=== PATIENT | female | born 1940 | race Caucasian/White ===

== ENCOUNTER 2023-03-26 10:39 | Emergency (ER) | payer OTHER, BC ==
[2023-03-26 11:52] LABS: Specific Gravity 1.015 (1.005-1.030); Urine Bacteria >50 /HPF (<20); Urine Bilirubin NEGATIVE (Negative); Urine Blood Negative (Negative); Urine Clarity Extremely Turbid (Clear); Urine Color Light-Yellow (Yellow); Urine Glucose NEGATIVE (Negative); Urine Mucus Slight /HPF (None Seen); Urine Protein TRACE (Negative); Urine RBC <5 /HPF (None Seen); Urine Urobilinogen Normal (Normal); Urine WBC Clump Moderate /HPF (None Seen); Urine pH 5.5 (5.0-7.0)
--- NOTE | 2023-03-26 12:09 | ER ---
Nurse's Notes [facility] Name: Dennis Lovell Age: 82 yrs Sex: Female : 1940 Arrival Date: 03/26/2023 Time: 10:39 Bed 4 Private MD: Diagnosis: Dysuria;UTI/ Urinary tract infection, site not specified;Dementia in other diseases classified elsewhere without behavioral disturbance Presentation: 03/26 10:53 Chief complaint: Caregiver states that patient was sent by Dr. Martinez for straight cath ss as she is unable to void in cup for UA. Caregiver reports that Dr. Martinez is requesting UA because she has had a rash to her groin that began approximately on Wednesday. Coronavirus screen: Client denies travel out of the [place] in the last 14 days. Ebola Screen: Patient denies exposure to infectious person. Patient denies travel to an Ebola-affected area in the 21 days before illness onset. Initial Sepsis Screen: Does the patient meet any 2 criteria? No. Patient's initial sepsis screen is negative. Does the patient have a suspected source of infection? No. Patient's initial sepsis screen is negative. Risk Assessment: Do you want to hurt yourself or someone else? Patient reports no desire to harm self or others. Onset of symptoms is unknown. 10:53 Method Of Arrival: Ambulatory ss 10:53 Acuity: SHAYNA 3 ss Historical: - Allergies: 10:55 No Known Allergies; ss - PMHx: 10:55 Alzheimer's disease; Arthritis; Atrial fibrillation; Dementia; Hyperlipidemia; ss Hypertensive disorder; - PSHx: 10:55 pacemaker; ss - Immunization history:: Adult Immunizations up to date. - Family history:: not pertinent. - Social history:: Smoking status: Patient denies any tobacco usage or history of. Screenin:34 [facility] ED Fall Risk Assessment (Adult) Score/Fall Risk Level 0 - 2 = Low Risk hb Oriented to surroundings, Maintained a safe environment. Abuse screen: Denies threats or abuse. Denies injuries from another. Nutritional screening: No deficits noted. Tuberculosis screening: No symptoms or risk factors identified. Assessment: 11:34 General: Appears in no apparent distress. Behavior is calm, cooperative. Pain: Denies hb pain. Neuro: Level of Consciousness is awake, alert, obeys commands. Cardiovascular: Patient's skin is warm and dry. Respiratory: Respiratory effort is even, unlabored, Respiratory pattern is regular, symmetrical. GI: No signs and/or symptoms were reported involving the gastrointestinal system. : Reports urgency, urinary frequency. EENT: No signs and/or symptoms were reported regarding the EENT system. Derm: Skin is pink, warm \T\ dry. Musculoskeletal: No signs and/or symptoms reported regarding the musculoskeletal system. Vital Signs: 10:53 BP 164 / 43; Pulse 70; Resp 16; Temp 97.3(TE); Pulse Ox 94% on R/A; Weight 44.13 kg; ss Pain 0/10; 10:53 Pain Scale: Adult ss ED Course: 10:41 Patient arrived in ED. rg4 10:46 Fabio Momin MD is Attending Physician. reshma 10:48 Mariah Patiño, RN is Primary Nurse. ld1 10:55 Triage completed. ss 10:55 Arm band placed on right wrist. ss 11:34 Patient has correct armband on for positive identification. hb 11:34 No provider procedures requiring assistance completed. Patient did not have IV access hb during this emergency room visit. 11:35 Urinalysis w/ reflexes Sent. ld1 Administered Medications: 12:20 Drug: Rocephin (cefTRIAXone) IM 1 grams Route: IM; Site: right deltoid; hb 12:20 Drug: Ciprofloxacin PO 500 mg Route: PO; hb Medication: 11:34 VIS not applicable for this client. hb Outcome: 12:09 Discharge ordered by . [facility] 12:29 Discharged to home ambulatory, with family. hb 12:29 Condition: stable 12:29 Discharge instructions given to patient, family, Instructed on discharge instructions, follow up and referral plans. medication usage, Demonstrated understanding of instructions, follow-up care, medications, Prescriptions given X 1. 12:29 Patient left the ED. hb Signatures: Fabio Momin MD MD cha Blanchard, Shelby, RN RN ss Baxter, Heather, RN RN hb Garcia, Rubi rg4 Mariah Patiño RN RN ld1
--- NOTE | 2023-03-26 12:09 | EDPHYS ---
Physician Documentation [facility] Name: Dennis Lovell Age: 82 yrs Sex: Female : 1940 Arrival Date: 03/26/2023 Time: 10:39 Bed 4 Private MD: ED Physician Fabio Momin HPI: 03/26 11:12 This 82 yrs old Female presents to ER via Ambulatory with complaints of reshma Urinary Problem. 11:12 The patient presents with urinary symptoms, dysuria, frequency. Onset: The reshma symptoms/episode began/occurred 2 day(s) ago. Modifying factors: The symptoms are alleviated by nothing, the symptoms are aggravated by nothing. Associated signs and symptoms: The patient has no apparent associated signs or symptoms. Severity of symptoms: At their worst the symptoms were mild, in the emergency department the symptoms are unchanged. The patient is not sexually active. The patient has not experienced similar symptoms in the past. Historical: - Allergies: 10:55 No Known Allergies; ss - PMHx: 10:55 Alzheimer's disease; Arthritis; Atrial fibrillation; Dementia; Hyperlipidemia; ss Hypertensive disorder; - PSHx: 10:55 pacemaker; ss - Immunization history:: Adult Immunizations up to date. - Family history:: not pertinent. - Social history:: Smoking status: Patient denies any tobacco usage or history of. ROS: 11:12 Constitutional: Negative for fever, chills, and weight loss, Eyes: Negative for injury, reshma pain, redness, and discharge, ENT: Negative for injury, pain, and discharge, Neck: Negative for injury, pain, and swelling, Cardiovascular: Negative for chest pain, palpitations, and edema, Respiratory: Negative for shortness of breath, cough, wheezing, and pleuritic chest pain, Abdomen/GI: Negative for abdominal pain, nausea, vomiting, diarrhea, and constipation, Back: Negative for injury and pain, MS/Extremity: Negative for injury and deformity, Skin: Negative for injury, rash, and discoloration, Neuro: Negative for headache, weakness, numbness, tingling, and seizure, Psych: Negative for depression, anxiety, suicide ideation, homicidal ideation, and hallucinations, Allergy/Immunology: Negative for hives, rash, and allergies, Endocrine: Negative for neck swelling, polydipsia, polyuria, polyphagia, and marked weight changes, Hematologic/Lymphatic: Negative for swollen nodes, abnormal bleeding, and unusual bruising. 11:12 : Positive for urinary symptoms, urinary frequency. Exam: 11:12 Constitutional: This is a well developed, well nourished patient who is awake, alert, reshma and in no acute distress. Head/Face: Normocephalic, atraumatic. Eyes: Pupils equal round and reactive to light, extra-ocular motions intact. Lids and lashes normal. Conjunctiva and sclera are non-icteric and not injected. Cornea within normal limits. Periorbital areas with no swelling, redness, or edema. ENT: Nares patent. No nasal discharge, no septal abnormalities noted. Tympanic membranes are normal and external auditory canals are clear. Oropharynx with no redness, swelling, or masses, exudates, or evidence of obstruction, uvula midline. Mucous membranes moist. Neck: Trachea midline, no thyromegaly or masses palpated, and no cervical lymphadenopathy. Supple, full range of motion without nuchal rigidity, or vertebral point tenderness. No Meningismus. Chest/axilla: Normal chest wall appearance and motion. Nontender with no deformity. No lesions are appreciated. Cardiovascular: Regular rate and rhythm with a normal S1 and S2. No gallops, murmurs, or rubs. Normal PMI, no JVD. No pulse deficits. Respiratory: Lungs have equal breath sounds bilaterally, clear to auscultation and percussion. No rales, rhonchi or wheezes noted. No increased work of breathing, no retractions or nasal flaring. Abdomen/GI: Soft, non-tender, with normal bowel sounds. No distension or tympany. No guarding or rebound. No evidence of tenderness throughout. Back: No spinal tenderness. No costovertebral tenderness. Full range of motion. Skin: Warm, dry with normal turgor. Normal color with no rashes, no lesions, and no evidence of cellulitis. MS/ Extremity: Pulses equal, no cyanosis. Neurovascular intact. Full, normal range of motion. Neuro: Awake and alert, GCS 15, oriented to person, place, time, and situation. Cranial nerves II-XII grossly intact. Motor strength 5/5 in all extremities. Sensory grossly intact. Cerebellar exam normal. Normal gait. Psych: Awake, alert, with orientation to person, place and time. Behavior, mood, and affect are within normal limits. Vital Signs: 10:53 BP 164 / 43; Pulse 70; Resp 16; Temp 97.3(TE); Pulse Ox 94% on R/A; Weight 44.13 kg; ss Pain 0/10; 10:53 Pain Scale: Adult ss MDM: 10:46 Patient medically screened. reshma 11:16 Differential diagnosis: urinary tract infection. Data reviewed: vital signs, nurses reshma notes, lab test result(s), urinalysis. Consideration of Admission/Observation Escalation of care including admission/observation considered. I considered the following discharge prescriptions or medication management in the emergency department Medications were administered in the Emergency Department. See MAR. Test considered but Not performed: Labs: NO LABS, NO CT. Care significantly affected by the following chronic conditions: ALHEIMERS, OA, A FIB, DEMENTIA, HYPERLIPEMIA. 03/26 11:11 Order name: Urinalysis w/ reflexes; Complete Time: 11:59 [facility] 03/26 11:55 Order name: Urine Culture EDMS Administered Medications: 12:20 Drug: Rocephin (cefTRIAXone) IM 1 grams Route: IM; Site: right deltoid; hb 12:20 Drug: Ciprofloxacin PO 500 mg Route: PO; hb Disposition Summary: 03/26/23 12:09 Discharge Ordered Location: Home reshma Problem: new reshma Symptoms: have improved reshma Condition: Stable reshma Diagnosis - Dysuria reshma - UTI/ Urinary tract infection, site not specified reshma - Dementia in other diseases classified elsewhere without behavioral disturbance reshma Followup: reshma - With: Private Physician - When: 2 - 3 days - Reason: Recheck today's complaints, Continuance of care, Re-evaluation by your physician Discharge Instructions: - Discharge Summary Sheet reshma - Dementia reshma - Dysuria reshma - Urinary Tract Infection, Adult reshma - Urinary Tract Infection, Adult, [id number] Forms: - Medication Reconciliation Form reshma - Thank You Letter reshma - Antibiotic Education reshma - Prescription Opioid Use [facility] - [email or web address] [facility] Prescriptions: - Cipro 250 mg Oral Tablet - take 1 tablet by ORAL route every 12 hours; 14 tablet; Refills: 0, Product reshma Selection Permitted Signatures: Dispatcher [employer] EDMS Fabio Momin MD MD cha Blanchard, Shelby, RN RN Mariela Forbes RN RN hb
[2023-03-26] MEDS ORDERED: LIDOCAINE 1% MPF 2 ML AMPULE ONE (12:22)
[2023-03-26] MEDS ORDERED: CIPROFLOXACIN HCL 500 MG TAB ONE (12:22)
[2023-03-26] MEDS ORDERED: CEFTRIAXONE 1000 MG/VIAL ONE (12:22)
[2023-03-26 12:34] VITALS: BP 164/43; TEMP 97.3; O2SAT 94
== END 2023-03-26 12:29 | disposition home or self-care (01) ==
LOC: ER 10:39
DX: N39.0 Urinary tract infection, site not specified (principal); G30.9 Alzheimer's disease, unspecified; F02.80 Dementia in other diseases classified elsewhere, unspecified severity, without behavioral disturbance, psychotic disturbance, mood disturbance, and anxiety; I10 Essential (primary) hypertension; Z95.0 Presence of cardiac pacemaker
CPT/HCPCS: 87088; 81001; 87086; 96372; 99284; J0696

== ENCOUNTER 2023-04-21 10:51 | Inpatient (IN) | payer OTHER, BC ==
[2023-04-21] MEDS ORDERED: CEFTRIAXONE 1000 MG/VIAL ONE (11:37)
[2023-04-21] MEDS ORDERED: LEVALBUTEROL 1.25 MG/3 ML NEB ONE (11:38)
[2023-04-21] MEDS ORDERED: NA CHLORIDE 0.9% 1,000 ML ONE (11:38)
[2023-04-21] MEDS ORDERED: IPRATROPIUM BROM 0.5MG/2.5ML ONE (11:38)
[2023-04-21] MEDS ORDERED: NA CHLORIDE 0.9% 100 ML ONE (11:39)
[2023-04-21 12:10] LABS: Protime INR 1.06
[2023-04-21 12:11] LABS: Hematocrit 39.9 % (36.0-45.0); Lymphocytes % 29.6 % (15.3-44.8); MCV 89.5 fL (80-100); MPV 7.5 fL (7.6-11.3); RBC Red Blood Cell Count 4.46 M/uL (3.86-4.86)
[2023-04-21 12:23] LABS: Albumin 3.7 g/dL (3.4-5.0); Bilirubin Direct 0.1 mg/dL (0-0.2); Bilirubin Indirect, Calculated 0.4 mg/dL (0.2-0.8); Bilirubin Total 0.5 mg/dL (0.2-1.0); Magnesium 2.6 mg/dL (1.6-2.4); Potassium 3.7 mEq/L (3.5-5.1); Protein, Total 7.8 g/dL (6.4-8.2); Troponin High Sensitivity 10.1 pg/mL (<58.9)
--- NOTE | 2023-04-21 12:32 | RAD REPORT ---
EXAM DESCRIPTION: RAD - Chest Single View - 04/21/2023 12:06 pm CLINICAL HISTORY: Cough;Dyspnea Chest pain. COMPARISON: Chest Single View dated 01/16/2023 FINDINGS: Portable technique limits examination quality. Mild interstitial pulmonary edema. The heart is mildly enlarged in size. No displaced fractures. IMPRESSION: Mild CHF.
[2023-04-21] MEDS ORDERED: OSELTAMIVIR 75 MG CAP PO ONE (12:55)
[2023-04-21] MEDS ORDERED: AZITHROMYCIN 500 MG INJ IVPB ONE (12:56)
--- NOTE | 2023-04-21 13:18 | EDPHYS ---
Physician Documentation [facility] Name: Dennis Lovell Age: 82 yrs Sex: Female : 1940 Arrival Date: 04/21/2023 Time: 10:51 Bed 8 Private MD: ED Physician Fabio Momin HPI: 04/21 13:03 This 82 yrs old Female presents to ER via EMS with complaints of Shortness Of reshma Breath. 13:03 The patient has shortness of breath at rest, with light activity. Onset: The reshma symptoms/episode began/occurred 3 day(s) ago. Duration: The symptoms are continuous, and are steadily getting worse. The patient's shortness of breath is aggravated by coughing, light activity, talking, walking, is alleviated by rest, sitting up, application of supplemental oxygen. Associated signs and symptoms: Pertinent positives: non-productive cough, fever. Severity of symptoms: At their worst the symptoms were moderate in the emergency department the symptoms have improved mildly. The patient has experienced similar episodes in the past, a few times. Historical: - PMHx: 12:00 Alzheimer's disease; Arthritis; Atrial fibrillation; Dementia; Hyperlipidemia; db Hypertensive disorder; - PSHx: 12:00 pacemaker; db - Immunization history:: Adult Immunizations up to date. - Social history:: Smoking status: Patient denies any tobacco usage or history of. ROS: 13:04 Constitutional: Negative for fever, chills, and weight loss, Eyes: Negative for injury, reshma pain, redness, and discharge, ENT: Negative for injury, pain, and discharge, Neck: Negative for injury, pain, and swelling, Cardiovascular: Negative for chest pain, palpitations, and edema. Exam: 13:11 Constitutional: This is a well developed, well nourished patient who is awake, alert, reshma and in no acute distress. Head/Face: Normocephalic, atraumatic. Eyes: Pupils equal round and reactive to light, extra-ocular motions intact. Lids and lashes normal. Conjunctiva and sclera are non-icteric and not injected. Cornea within normal limits. Periorbital areas with no swelling, redness, or edema. ENT: Nares patent. No nasal discharge, no septal abnormalities noted. Tympanic membranes are normal and external auditory canals are clear. Oropharynx with no redness, swelling, or masses, exudates, or evidence of obstruction, uvula midline. Mucous membranes moist. Neck: Trachea midline, no thyromegaly or masses palpated, and no cervical lymphadenopathy. Supple, full range of motion without nuchal rigidity, or vertebral point tenderness. No Meningismus. Chest/axilla: Normal chest wall appearance and motion. Nontender with no deformity. No lesions are appreciated. Abdomen/GI: Soft, non-tender, with normal bowel sounds. No distension or tympany. No guarding or rebound. No evidence of tenderness throughout. Back: No spinal tenderness. No costovertebral tenderness. Full range of motion. Female : Normal external genitalia. Skin: Warm, dry with normal turgor. Normal color with no rashes, no lesions, and no evidence of cellulitis. MS/ Extremity: Pulses equal, no cyanosis. Neurovascular intact. Full, normal range of motion. Psych: Awake, alert, with orientation to person, place and time. Behavior, mood, and affect are within normal limits. 13:11 Cardiovascular: Rate: tachycardic, actual rate is 101 bpm, Rhythm: regular, Pulses: Pulses are 4+ in bilateral radial, brachial, femoral, popliteal, posterior tibial and and dorsalis pedis arteries.. Heart sounds: normal, Edema: is not appreciated, JVD: is not appreciated. 13:11 ECG was reviewed by the Attending Physician. Vital Signs: 10:58 BP 158 / 45; Pulse 67; Resp 18; Temp 98.7(O); Pulse Ox 100% ; Weight 54.43 kg; Height 5 db ft. 5 in. ; 12:00 BP 151 / 49; Pulse 89; Resp 16; Pulse Ox 99% on R/A; db 13:07 BP 138 / 47; Pulse 88; Resp 18; Pulse Ox 94% on R/A; ko1 13:42 BP 113 / 48; Pulse 89; Resp 18; Pulse Ox 95% on 2 lpm NC; ko1 14:49 BP 130 / 54; Pulse 95; Resp 16; Pulse Ox 95% ; ko1 10:58 Body Mass Index 19.97 (54.43 kg, 165.1 cm) db MDM: 11:02 Patient medically screened. reshma 13:12 Differential diagnosis: Anemia Anxiety Reaction Bronchitis CHF exacerbation, Chronic reshma Obstructive Pulmonary Disease obstructed airway, tracheal injury, bronchitis, flu, URI, viral Infection, bacterial infection, URI, bronchitis, pneumonia UTI, Myocardial Infarction pneumonia, pulmonary edema, Pulmonary Embolism reactive airway disease, Sepsis. Antibiotic administration: Not indicated. Differential Diagnosis altered mental status, sepsis. Immunization status: Pneumococcal vaccine: within last 5 years. Influenza vaccine: within last 5 years. Data reviewed: vital signs, nurses notes, lab test result(s), EKG, radiologic studies, CT scan, plain films. Consideration of Admission/Observation Patient was admitted/placed on observation. Escalation of care including admission/observation considered. I considered the following discharge prescriptions or medication management in the emergency department Medications were administered in the Emergency Department. See MAR. Test considered but Not performed: CT: no ct chest. Care significantly affected by the following chronic conditions: Hypertension, a fib, oa, hyperlipid, alzheimers. Counseling: I had a detailed discussion with the patient and/or guardian regarding: the historical points, exam findings, and any diagnostic results supporting the discharge/admit diagnosis, lab results, radiology results, the need for further work-up and treatment in the hospital. 04/21 11:13 Order name: Basic Metabolic Panel; Complete Time: 12:36 [facility] 04/21 11:13 Order name: CBC with Diff; Complete Time: 12:36 [facility] 04/21 11:13 Order name: LFT's; Complete Time: 12:36 [facility] 04/21 11:13 Order name: Magnesium; Complete Time: 12:36 [facility] 04/21 11:13 Order name: NT PRO-BNP; Complete Time: 12:36 [facility] 04/21 11:13 Order name: PT-INR; Complete Time: 12:36 [facility] 04/21 11:13 Order name: Troponin HS; Complete Time: 12:36 [facility] 04/21 11:13 Order name: Blood Culture Adult (2) [facility] 04/21 11:13 Order name: Lactate w/ 2H reflex if indic.; Complete Time: 12:36 [facility] 04/21 11:13 Order name: Urinalysis w/ reflexes [facility] 04/21 11:13 Order name: Flu; Complete Time: 12:36 [facility] 04/21 11:13 Order name: COVID-19 SARS RT PCR; Complete Time: 12:36 [facility] 04/21 15:37 Order name: Lactate Sepsis 2 HR Follow-up [facility] 04/21 11:13 Order name: XRAY Chest (1 view); Complete Time: 12:36 [facility] 04/21 15:13 Order name: Thorax Wo Con [facility] 04/21 15:17 Order name: ERT ORTHOSTATIC V/S [facility] 04/21 15:18 Order name: ERT ORTHOSTATIC V/S [facility] 04/21 15:18 Order name: ERT ORTHOSTATIC V/S [facility] 04/21 15:18 Order name: ERT ORTHOSTATIC V/S [facility] 04/21 15:18 Order name: ERT ORTHOSTATIC V/S [facility] 04/21 15:54 Order name: CT [facility] 04/21 11:13 Order name: EKG; Complete Time: 11:14 [facility] 04/21 15:19 Order name: Physical Therapy Consult [facility] 04/21 11:13 Order name: Cardiac monitoring; Complete Time: 11:33 [facility] 04/21 11:13 Order name: EKG - Nurse/Tech; Complete Time: 13:53 [facility] 04/21 11:13 Order name: IV Saline Lock; Complete Time: 11:33 [facility] 04/21 11:13 Order name: Labs collected and sent; Complete Time: 11:52 [facility] 04/21 11:13 Order name: O2 Per Protocol; Complete Time: 11:33 [facility] 04/21 11:13 Order name: O2 Sat Monitoring; Complete Time: 11:33 [facility] EC:11 Rate is 77 beats/min. Rhythm is regular. QRS [place] is Normal. MA interval is normal. QRS reshma interval is normal. QT interval is normal. No Q waves. T waves are Normal. No ST changes noted. Clinical impression: NSR w/ Non-specific ST/T Changes, 1st degree heart block, and No evidence of ischemia. Interpreted by me. Reviewed by me. Administered Medications: 11:31 Not Given (given by EMS): MethylPrednisoLONE IVP 125 mg IVP once db 11:48 Drug: Levalbuterol Inhalation 2.5 mg Route: Inhalation; ko1 11:48 Drug: Ipratropium Inhalation Aerosol 0.5 mg Route: Inhalation; ko1 11:51 Drug: NS 0.9% IV 1000 ml Route: IV; Rate: 125 ml/hr; Site: right antecubital; ko1 12:30 Drug: Rocephin IV 1 grams Route: IV; Rate: per protocol; Site: right antecubital; ko1 12:57 Drug: Zithromax IVPB 500 mg Route: IVPB; Infused Over: 1 hrs; Site: right antecubital; ko1 12:57 Drug: Oseltamivir PO 75 mg Route: PO; ko1 13:53 Follow up: Response: No adverse reaction db Disposition Summary: 04/21/23 13:17 Hospitalization Ordered Hospitalization Status: Inpatient Admission reshma Location: Telemetry/MedSurg (Inpatient) reshma Condition: Fair reshma Problem: new reshma Symptoms: have improved reshma Bed/Room Type: Standard reshma Provider: Mark Boswell(04/21/23 13:48) reshma Room Assignment: [id number](04/21/23 15:27) bd Diagnosis - Dementia in other diseases classified elsewhere without behavioral disturbance reshma - Influenza due to other identified influenza virus with pneumonia - INFLUENZA B reshma - Hypoxemia reshma - Acute kidney failure, unspecified - ACUTE ON CHRONIC reshma Forms: - Medication Reconciliation Form reshma - SBAR form reshma Signatures: Dispatcher [employer] EDMS Aleta Tompkins Corey, MD MD cha Oliver, Kathy, RN RN ko1 Asha Harkins RN RN db Corrections: (The following items were deleted from the chart) 13:48 13:17 Verena Gamez cha reshma 15:27 13:17 reshma bd
--- NOTE | 2023-04-21 13:18 | ER ---
Nurse's Notes [facility] Name: Dennis Lovell Age: 82 yrs Sex: Female : 1940 Arrival Date: 04/21/2023 Time: 10:51 Bed 8 Private MD: Diagnosis: Dementia in other diseases classified elsewhere without behavioral disturbance;Influenza due to other identified influenza virus with pneumonia-INFLUENZA B;Hypoxemia;Acute kidney failure, unspecified-ACUTE ON CHRONIC Presentation: 04/21 10:58 Chief complaint: EMS states: picked up from Urgent care for Low SpO2 Care RA 84%, BP db 70/40, Bilat eye redness in eyes for unknown days. Patient placed on 2L O2 at Urgent Care and O2 94%. Rales bilat. EMS gave 125 mg Solumedrol. Duoneb x1 given by EMS and still going upon arrival. Atrovent/Albuterol. Glucose 164. Coronavirus screen: Vaccine status: Patient reports receiving the 2nd dose of the covid vaccine. Client denies travel out of the [place] in the last 14 days. At this time, the client does not indicate any symptoms associated with coronavirus-19. Ebola Screen: Patient negative for fever greater than or equal to 101.5 degrees Fahrenheit, and additional compatible Ebola Virus Disease symptoms Patient denies exposure to infectious person. Patient denies travel to an Ebola-affected area in the 21 days before illness onset. No symptoms or risks identified at this time. Initial Sepsis Screen: Does the patient meet any 2 criteria? No. Patient's initial sepsis screen is negative. Does the patient have a suspected source of infection? No. Patient's initial sepsis screen is negative. Risk Assessment: Do you want to hurt yourself or someone else? Patient reports no desire to harm self or others. Onset of symptoms was April 21, 2023. Care prior to arrival: Medication(s) given: Albuterol Neb x 1, solumedrol IV initiated. 10:58 Method Of Arrival: EMS: [facility] db 10:58 Acuity: SHAYNA 2 db Triage Assessment: 11:14 General: Appears in no apparent distress. comfortable, Behavior is calm, cooperative. db Pain: Denies pain. Neuro: Level of Consciousness is awake, alert, obeys commands, Oriented to person, place, time, situation. Respiratory: Airway is patent Respiratory effort is even, unlabored, Respiratory pattern is regular, symmetrical, Breath sounds are coarse. Historical: - PMHx: 12:00 Alzheimer's disease; Arthritis; Atrial fibrillation; Dementia; Hyperlipidemia; db Hypertensive disorder; - PSHx: 12:00 pacemaker; db - Immunization history:: Adult Immunizations up to date. - Social history:: Smoking status: Patient denies any tobacco usage or history of. Screenin:18 [facility] ED Fall Risk Assessment (Adult) History of falling in the last 3 months, db including since admission No falls in past 3 months (0 pts) Confusion or Disorientation Yes (5 pts) Intoxicated or Sedated No (0 pts) Impaired Gait No (0 pts) Mobility Assist Device Used Yes (1 pt) Altered Elimination No (0 pt) Score/Fall Risk Level 0 - 2 = Low Risk Oriented to surroundings, Maintained a safe environment. Abuse screen: Denies threats or abuse. Denies injuries from another. Nutritional screening: No deficits noted. Nutritional screening: No deficits noted. Tuberculosis screening: No symptoms or risk factors identified. Assessment: 11:45 Reassessment: SEE TRIAGE FOR INITIAL ASSESSMENT. db 11:52 Reassessment: CALLED LAB FOR PATIENT 2ND BLOOD CULTURE. 1ST BLOOD CULTURE DIFFICULT TO db OBTAIN. IV ANTIBIOTICS HELD TILL BLOOD CULTURE DRAW COMPLETED. 12:17 Reassessment: Patient appears in no apparent distress at this time. Patient and/or db family updated on plan of care and expected duration. Pain level reassessed. Patient is alert, oriented x 3, equal unlabored respirations, skin warm/dry/pink. 12:17 Reassessment: PHLEBOTOMY AT BEDSIDE FOR BLOOD DRAW. db 12:18 Neuro: Level of Consciousness is awake, alert, obeys commands, confused, Oriented to. db 15:25 Reassessment:. db 15:26 Reassessment: LACTATE 2.7. db Vital Signs: 10:58 BP 158 / 45; Pulse 67; Resp 18; Temp 98.7(O); Pulse Ox 100% ; Weight 54.43 kg; Height 5 db ft. 5 in. ; 12:00 BP 151 / 49; Pulse 89; Resp 16; Pulse Ox 99% on R/A; db 13:07 BP 138 / 47; Pulse 88; Resp 18; Pulse Ox 94% on R/A; ko1 13:42 BP 113 / 48; Pulse 89; Resp 18; Pulse Ox 95% on 2 lpm NC; ko1 14:49 BP 130 / 54; Pulse 95; Resp 16; Pulse Ox 95% ; ko1 10:58 Body Mass Index 19.97 (54.43 kg, 165.1 cm) db ED Course: 11:01 Patient arrived in ED. ko1 11:02 Fabio Momin MD is Attending Physician. reshma 11:08 Asha Harkins, RN is Primary Nurse. db 11:14 Triage completed. db 11:14 Arm band placed on Patient placed in an exam room. db 11:30 Patient has correct armband on for positive identification. Fall risk band placed. ko1 Placed in gown. Bed in low position. Call light in reach. Side rails up X2. Provided Education on: NA. Client placed on continuous cardiac and pulse oximetry monitoring. NIBP monitoring applied. equipment monitor phototypesetting on. Door closed. Noise minimized. Lights dimmed. Warm blanket given. 11:30 Inserted saline lock: 22 gauge in right antecubital area, using aseptic technique. ko1 Blood collected. 11:33 COVID-19 SARS RT PCR Sent. ko1 11:33 Flu Sent. ko1 11:45 Maintain EMS IV. Dressing intact. Good blood return noted. Site clean \T\ dry. Gauge \T\ db site: 22 G LAC. 11:49 Lactate w/ 2H reflex if indic. Sent. ko1 11:49 Basic Metabolic Panel Sent. ko1 11:49 CBC with Diff Sent. ko1 11:49 LFT's Sent. ko1 11:49 Magnesium Sent. ko1 11:49 NT PRO-BNP Sent. ko1 11:49 PT-INR Sent. ko1 11:49 Troponin HS Sent. ko1 11:50 First set of blood cultures drawn. db 12:07 XRAY Chest (1 view) In Process Unspecified. EDMS 12:21 Notified ED physician of a critical lab result(s). lactate 2.4. ll1 12:30 Blood Culture Adult (2) Sent. ko1 13:16 Verena Gamez MD is Hospitalizing Provider. reshma 13:48 Mark Boswell is Hospitalizing Provider. reshma 14:49 No provider procedures requiring assistance completed. Patient admitted, IV remains in ko1 place. Administered Medications: 11:31 Not Given (given by EMS): MethylPrednisoLONE IVP 125 mg IVP once db 11:48 Drug: Levalbuterol Inhalation 2.5 mg Route: Inhalation; ko1 11:48 Drug: Ipratropium Inhalation Aerosol 0.5 mg Route: Inhalation; ko1 11:51 Drug: NS 0.9% IV 1000 ml Route: IV; Rate: 125 ml/hr; Site: right antecubital; ko1 12:30 Drug: Rocephin IV 1 grams Route: IV; Rate: per protocol; Site: right antecubital; ko1 12:57 Drug: Zithromax IVPB 500 mg Route: IVPB; Infused Over: 1 hrs; Site: right antecubital; ko1 12:57 Drug: Oseltamivir PO 75 mg Route: PO; ko1 13:53 Follow up: Response: No adverse reaction db Medication: 14:49 VIS not applicable for this client. ko1 Outcome: 13:17 Decision to Hospitalize by Provider. reshma 16:21 Admitted to Med/surg accompanied by tech, family with patient, via stretcher, room 218, ko1 with chart, Report called to BEAR Patel 16:21 Condition: stable 16:21 Instructed on the need for admit. 16:51 Patient left the ED. ko1 Signatures: Dispatcher [employer] EDFabio Higgins MD MD cha Lewis, Lynsay, RN RN ll1 Juju Gupta RN RN ko1 Asha Harkins RN RN db
[2023-04-21] MEDS ORDERED: TRAMADOL HCL 50 MG TAB PO PRN (15:13)
[2023-04-21] MEDS ORDERED: ACETAMINOPHEN 325 MG TABLET PO PRN (15:14)
[2023-04-21] MEDS ORDERED: ONDANSETRON 4 MG/2 ML VIAL IV PRN (15:31)
--- NOTE | 2023-04-21 15:34 | P.HP ---
Certification for Inpatient Patient admitted to: Inpatient With expected LOS: >2 Midnights Patient will require the following post-hospital care: None Practitioner: I am a practitioner with admitting privileges, knowledge of patient current condition, hospital course, and medical plan of care. Services: Services provided to patient in accordance with Admission requirements found in Title 42 Section 412.3 of the Code of Federal Regulations Patient History Date of Service: 04/21/23 Reason for admission: SOB History of Present Illness: Patient is an 82-year-old female with a past medical history significant for dementia, osteoarthritis, atrial fibrillation, hyperlipidemia, hypertension who presents with complaint of shortness of breath to be ongoing for the past 3 days. Patient currently confused and unable to provide any accurate history. Family reported associated signs and symptoms of cough, weakness, fatigue, nausea, vomiting and poor appetite. Family also reported that patient has been having episodes of generalized tremors before passing out. No other signs or symptoms reported. Symptoms are aggravated or relieved by nothing. Patient was brought to the hospital for medical evaluation. Allergies No Known Allergies Allergy (Unverified 04/21/23 15:50) Home Medications: Amlodipine [Norvasc] 5 mg PO BID 04/21/23 Aspirin [Aspirin EC 81 MG] 81 mg PO DAILY 04/21/23 Atorvastatin Calcium 20 mg PO DAILY 04/21/23 Donepezil [Aricept] 5 mg PO DAILY 04/21/23 Fluoxetine HCl 10 mg PO DAILY 04/21/23 Losartan Potassium [Cozaar] 50 mg PO BID 04/21/23 Quetiapine [Seroquel] 25 mg PO BID 04/21/23 Triamterene/Hydrochlorothiazid [Triamterene-Hctz 37.5-25 mg Tb] 37.5 mg PO DAILY 04/21/23 - Past Medical/Surgical History -: Afib -: HTN -: HLD -: OA -: Alzheimer's Dementia Past Surgical History: Reviewed- Non-Contributory - Family History Family History: Reviewed- Non-Contributory - Social History Smoking Status: Never smoker Caffeine use: Yes Place of Residence: Home Review of Systems is unable to be obtained (Unable to assess. Patient confused.) Physical Examination - Physical Exam General: Alert, In no apparent distress, Oriented x2, Confused HEENT: Atraumatic, PERRLA, Mucous membr. moist/pink, EOMI, Sclerae nonicteric Neck: Supple, 2+ carotid pulse no bruit, No LAD, Without JVD or thyroid abnormality Respiratory: Diminished Cardiovascular: No edema, Normal S1 S2, Irregular heart rate/rhythm Capillary refill: <2 Seconds Gastrointestinal: Normal bowel sounds, Soft and benign, No tenderness Musculoskeletal: No clubbing, No tenderness Integumentary: No rashes, No significant lesion Neurological: Normal speech, Normal tone, Normal affect Lymphatics: No axilla or inguinal lymphadenopathy - Studies Laboratory Data (last 24 hrs) 04/21/23 11:45: PT 11.7, INR 1.06 04/21/23 11:45: WBC 10.10, Hgb 13.2, Hct 39.9, Plt Count 364 04/21/23 11:45: Sodium 141, Potassium 3.7, BUN 25 H, Creatinine 1.81 H, Glucose 182 H, Magnesium 2.6 H, Total Bilirubin 0.5, AST 23, ALT 27, Alkaline Phosphatase 157 H Microbiology Data (last 24 hrs): 04/21/23 11:30 Nasopharnyx Influenza Type A Antigen Screen - Final 04/21/23 11:30 Nasopharnyx Influenza Type B Antigen Screen - Final Assessment and Plan - Plan --Dyspnea. CT chest indicates no evidence of pneumonia but indicates moderate COPD. Continue nebulizer treatment with Atrovent and albuterol. Continue O2 therapy. --Syncope versus seizures. Patient has had episodes of generalized tremors before passing out. CT head unremarkable for any acute intracranial abnormality. Neurology consulted. Fall precautions. We will await further recommendations. --Influenza B. Continue Tamiflu. Contact and droplet precautions. --Hyperlipidemia. Continue statin. --Hypertension. Poorly controlled. Continue home medications and hydralazine as needed. -- Alzheimer's dementia. Continue home medications. --Depression. Continue home medications -- Paroxysmal Atrial fibrillation. Patient not on home anticoagulation. Telemetry to monitor for any malignant arrhythmia. -- Osteoarthritis. We will manage pain with current pain medication -- Aortic root and ascending aorta aneurysm. CT imaging indicates " aneurysmal dilation of the aortic root and ascending aorta is noted, measuring maximally 6 cm". Cardiology consulted. We will keep blood pressure controlled. Continue aspirin. --IZABELLA. Likely prerenal. Secondary to poor p.o. intake. Continue IV hydration. We will continue to monitor renal functions. --Nausea and vomiting. Antiemetics on board. Continue supportive care. --DVT prophylaxis with Lovenox subQ. Discharge Plan: Home Plan to discharge in: Greater than 2 days - Advance Directives Does patient have a Living Will: No Does patient have a Durable POA for Healthcare: No - Code Status/Comfort Care Code Status Assessed: Yes Physician Review: Patient Assessed, Agree with Above Assessment and Plan Critical Care: No
--- NOTE | 2023-04-21 15:54 | RAD REPORT ---
EXAM DESCRIPTION: CT - Head Brain Wo Cont - 04/21/2023 3:44 pm CLINICAL HISTORY: Syncope and Suspected seizures Headache, drowsiness COMPARISON: Head Brain Wo Cont dated 01/16/2023; Thorax Wo Con dated 04/21/2023 TECHNIQUE: All CT scans are performed using dose optimization technique as appropriate and may inclu de automated exposure control or mA/KV adjustment according to patient size. FINDINGS: No intracranial hemorrhage, hydrocephalus or extra-axial fluid collection.Moderate periven tricular chronic microvascular ischemic changes. 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 No areas of brain edema or evidence of midline shift. The paranasal sinuses and mastoids are clear. The calvarium is intact. IMPRESSION: No acute intracranial abnormality.
--- NOTE | 2023-04-21 15:56 | RAD REPORT ---
EXAM DESCRIPTION: CT - Thorax Wo Con CLINICAL HISTORY: Chest pain R O Pneumonia COMPARISON: Head Brain Wo Cont dated 04/21/2023 FINDINGS: Aneurysmal dilatation of the aortic root and ascending aorta is noted, measuring maximally 6 cm. Mild atherosclerosis of the aortic arch is present. Mild linear atelectasis in both posterior lung bases. No focal infiltrate. Moderate emphysema. No axillary, mediastinal or hilar adenopathy. No concerning bony finding. No gross upper abdominal finding. All CT scans are performed using dose optimization technique as appropriate and may include automated exposure control or mA/KV adjustment according to patient size. IMPRESSION: Aneurysmal dilatation of the thoracic aorta measuring up to 6 cm. No evidence of pneumonia. Moderate COPD.
[2023-04-21 17:16] VITALS: BMI 19.8
[2023-04-21] MEDS: ENOXAPARIN 30 MG/0.3 ML SQ SCH (17:24)
[2023-04-21 18:23] LABS: Magnesium 2.4 mg/dL (1.6-2.4); Phosphorus 2.4 mg/dL (2.5-4.9); Thyroid Stimulating Hormone 0.889 uIU/mL (0.358-3.740)
[2023-04-21 20:40] LABS: Specific Gravity 1.017 (1.005-1.030); Urine Bacteria None Seen /HPF (<20); Urine Bilirubin NEGATIVE (Negative); Urine Blood Negative (Negative); Urine Clarity Extremely Turbid (Clear); Urine Color Yellow (Yellow); Urine Crystals Unidentified Few /HPF (None Seen); Urine Glucose NEGATIVE (Negative); Urine Mucus Slight /HPF (None Seen); Urine Protein 1+ (Negative); Urine RBC <5 /HPF (None Seen); Urine Urobilinogen Normal (Normal); Urine pH 5.5 (5.0-7.0)
[2023-04-21] MEDS ORDERED: POTASSIUM CL SA 10 MEQ TAB PO ONE (21:00)
[2023-04-21] MEDS: OSELTAMIVIR 75 MG CAP PO SCH (21:34)
[2023-04-22 03:16] LABS: Absolute Lymphocytes (CBC) 1.1 K/uL (0.7-4.9); Hematocrit 36.1 % (36.0-45.0); Lymphocytes % 8.7 % (15.3-44.8); MCV 88.8 fL (80-100); MPV 8.2 fL (7.6-11.3); RBC Red Blood Cell Count 4.07 M/uL (3.86-4.86)
[2023-04-22 03:47] LABS: Potassium 4.7 mEq/L (3.5-5.1)
[2023-04-22 04:41] LABS: Phosphorus 2.6 mg/dL (2.5-4.9)
[2023-04-22 04:45] LABS: Blood Morphology Comment NOTED (NOT SEEN); Platelet Estimate ADEQ; Polychromasia 1+
[2023-04-22] MEDS ORDERED: HYDRALAZINE HCL 20 MG/ML VIAL IV PRN (05:37)
[2023-04-22] MEDS: IPRATROPIUM BROM 0.5MG/2.5ML NEB SCH ×3 (08:05→19:40)
[2023-04-22] MEDS: ALBUTEROL 2.5 MG/3 ML NEB SOL NEB SCH ×3 (08:05→19:40)
[2023-04-22] MEDS ORDERED: ASPIRIN 81 MG CHEWABLE TABLET PO SCH (09:00)
[2023-04-22] MEDS ORDERED: ENOXAPARIN 40 MG/0.4 ML SQ SCH (09:00)
[2023-04-22] MEDS: OSELTAMIVIR 75 MG CAP PO SCH ×2 (10:20→21:30)
[2023-04-22] MEDS: ENOXAPARIN 30 MG/0.3 ML SQ SCH (13:00)
--- NOTE | 2023-04-22 13:22 | EKG ---
Test Date: 2023-04-21 Test Time: 12:11:38 Finisher Cold Rolling: GIGI MEASUREMENT RESULTS: Intervals: Rate: 82 FL: 174 QRSD: 114 QT: 416 QTc: 486 [place]: P: 58 FL: 174 QRS: -5 T: 100 INTERPRETIVE STATEMENTS: Normal sinus rhythm Incomplete left bundle branch block ST & T wave abnormality, consider lateral ischemia Prolonged QT Abnormal ECG Compared to ECG 01/16/2023 13:41:33 Possible ischemia now present Prolonged QT interval now present Atrial fibrillation no longer present ST (T wave) deviation still present Electronically Signed On 04-22-23 13:19:56 CDT by John Rebolledo
--- NOTE | 2023-04-22 13:22 | EKG ---
Test Date: 2023-04-21 Test Time: 12:12:18 Clinical Auditor: GIGI MEASUREMENT RESULTS: Intervals: Rate: 77 VA: 210 QRSD: 114 QT: 428 QTc: 484 [place]: P: 86 VA: 210 QRS: -10 T: 99 INTERPRETIVE STATEMENTS: Sinus rhythm with 1st degree AV block Incomplete left bundle branch block Nonspecific ST and T wave abnormality Abnormal ECG Compared to ECG 04/21/2023 12:11:38 First degree AV block now present Possible ischemia no longer present Prolonged QT interval no longer present ST (T wave) deviation still present Electronically Signed On 04-22-23 13:19:53 CDT by John Rebolledo
--- NOTE | 2023-04-22 18:10 | P.PN ---
Subjective Date of Service: 04/22/23 Chief Complaint: SOB No issues overnight. Patient currently has no complaint. She is tolerating her diet. She denies any chest pain. Physical Examination - Vital Signs Temperature: 98.5 F Blood Pressure: 138/74 Pulse: 79 Respirations: 16 Pulse Ox (%): 93 Assessment And Plan - Plan Physical Exam General: Alert, In no apparent distress, Oriented x2, Confused Neck: Supple, no elevated JVD. Respiratory: Clear to auscultation bilaterally. Cardiovascular: No edema, Normal S1 S2, Irregular heart rate/rhythm Gastrointestinal: Normal bowel sounds, Soft and benign, No tenderness Musculoskeletal: No clubbing, No tenderness Integumentary: No rashes, No significant lesion Neurological: Normal speech, no focal motor deficit. Dementia. Diagnosis Syncope Influenza B infection Aortic aneurysm Paroxysmal atrial fibrillation Acute kidney injury Alzheimer's dementia Hypertension Syncope Unknown etiology. Could be related to atrial fibrillation in the context of aortic aneurysm. Patient had a recent echocardiogram done which was unremarkable except aortic aneurysm. Cardiology input appreciated. Aortic aneurysm Patient seen by Dr. Rebolledo who recommend conservative management. Patient with advanced dementia. Blood pressure control. Monitor. Influenza B Supportive measures Tamiflu. Acute kidney injury Renal function is improving. Oral rehydration Paroxysmal atrial fibrillation Stable
[2023-04-22] MEDS: LOSARTAN POTASSIUM 50 MG TABLET PO SCH (21:30)
[2023-04-22] MEDS: QUETIAPINE 25 MG TAB PO SCH (21:30)
[2023-04-22] MEDS: AMLODIPINE 5 MG TAB PO SCH (21:30)
--- NOTE | 2023-04-23 00:39 | CON ---
Date of Consultation: 04/22/2023 Reason For Consultation: Thoracic aorta aneurysm. History Of Present Illness: 82-year-old female, history of advanced dementia, atrial fibrillation, d yslipidemia, hypertension. She was brought into the emergency room with some shortness of breath on exertion, but more so, she has been confused and she had workup in the emergency room, including ches t CT and showed thoracic aorta aneurysm that measures 6 cm but no dissection. Past Medical History: As outlined above in the HPI. Medication: Refer reconciliation sheet for detailed list. Allergies: NO KNOWN DRUG ALLERGIES. Family History: No premature coronary artery disease or cancer. Social History: She does not smoke or drink. Does not use any drugs. Review of Systems: All systems reviewed and they are negative, except for what is mentioned in HPI. Physical Examination: Vital Signs: Temperature is 98.5, pulse 79, breathing at 16, blood pressure 138/74, saturating 94% o n room air. General: Pleasant elderly female, in no apparent distress. Head and Neck: Pupils are equal, reactive to light. Intact eye movements. No JVD. No cervical lym phadenopathy. Neck is supple. Thyroid is not enlarged. Lungs: Clear to auscultation bilaterally. No rhonchi, wheezing, or crackles. No accessory muscle u se. Heart: Irregular. No extra sounds. Abdomen: Soft, nontender. Bowel sounds positive. No organomegaly. No masses or hernia. No rigidi ty or rebound. Extremities: No edema, clubbing, cyanosis. Intact pulses. Skin: No rash. Neurologic: Alert, awake, oriented x3. No acute focal deficits appreciated. Investigations: BUN 27. Creatinine 1.16, down from 1.8. Troponins negative. Hemoglobin is 11.7. On CT scan of the chest, this was found to have thoracic aorta aneurysm up to 6 cm, but this was with out contrast CT. Assessment And Recommendation: 1.Thoracic aorta aneurysm. It was seen on noncontrast CT and it says it is 6 cm. In fact, she is b eing monitored in my office and her aneurysm is below 5 cm, but at any rate, this patient has advance d dementia and very poor quality of life and she is elderly and she is 82 years old with multiple com orbid conditions. At this point, I recommend observation and tight control of her blood pressure and heart rate, and I recommend against surgical intervention as likely she will not be able to tolerate the surgery and given the fact that she has advanced dementia, I do not recommend intervention on it . Discussed the above in details with her and her daughter, and they agreed to the plan and concurred. As of now, her blood pressure and heart rate are acceptable, so we will continue to monit or. 2.Acute renal failure, probably due to an infectious process that is going on and improved with flui ds. Continue current management. 3.Hypertension. Blood pressure is controlled. Thank you for the consult. Cardiology will sign off. SR/MODL Voice ID: [id number] Report ID: [id number]
[2023-04-23] MEDS: ALBUTEROL 2.5 MG/3 ML NEB SOL NEB SCH ×2 (02:25→08:00)
[2023-04-23] MEDS: IPRATROPIUM BROM 0.5MG/2.5ML NEB SCH ×2 (02:25→08:00)
[2023-04-23 06:19] LABS: Absolute Lymphocytes (CBC) 2.3 K/uL (0.7-4.9); Lymphocytes % 16.3 % (15.3-44.8); MPV 7.3 fL (7.6-11.3); RBC Red Blood Cell Count 3.98 M/uL (3.86-4.86)
[2023-04-23 06:30] LABS: Potassium 3.8 mEq/L (3.5-5.1)
[2023-04-23] MEDS: QUETIAPINE 25 MG TAB PO SCH (08:29)
[2023-04-23] MEDS: AMLODIPINE 5 MG TAB PO SCH (08:30)
[2023-04-23] MEDS: LOSARTAN POTASSIUM 50 MG TABLET PO SCH (08:30)
[2023-04-23] MEDS: OSELTAMIVIR 75 MG CAP PO SCH (08:30)
[2023-04-23] MEDS ORDERED: ASPIRIN EC 81 MG TAB PO SCH (09:00)
[2023-04-23] MEDS ORDERED: MAXZIDE (HCTZ 25/TRIAMTERENE 37.5MG) TAB PO SCH (09:00)
[2023-04-23] MEDS ORDERED: ENOXAPARIN 40 MG/0.4 ML SQ SCH (09:00)
[2023-04-23] MEDS ORDERED: FLUOXETINE 10 MG CAP PO SCH (09:00)
[2023-04-23] MEDS ORDERED: ATORVASTATIN 20 MG TAB PO SCH (09:00)
[2023-04-23] MEDS ORDERED: DONEPEZIL HCL 5 MG TAB PO SCH (09:00)
--- NOTE | 2023-04-23 10:59 | P.DS ---
Admission Date: 04/21/23 Discharge Date: 04/23/23 Disposition: ROUTINE DISCHARGE Reason for Admission: SOB Brief History of Present Illness: Patient is an 82-year-old female with a past medical history significant for dementia, osteoarthritis, atrial fibrillation, hyperlipidemia, hypertension who presents with complaint of shortness of breath for 3 days. Patient has advanced dementia and was unable to provide any accurate history. Family reported associated signs and symptoms of cough, weakness, fatigue, nausea, vomiting and poor appetite. Family also reported that patient experienced episodes of generalized tremors. There is a report patient might have passed out. Patient tested positive for influenza B in the ED. chest x-ray suggested mild CHF. CTA thorax demonstrated aortic aneurysm, ascending aorta diameter up to 6 cm. Patient was hospitalized for further management. Hospital Course: Diagnosis Syncope Influenza B infection Aortic aneurysm Paroxysmal atrial fibrillation Acute kidney injury Alzheimer's dementia Hypertension Patient admitted to the medical floor and the following medical problems addressed: Syncope Patient reported to have been unresponsive briefly. Could be related to atrial fibrillation in the context of aortic aneurysm or cough syncope Patient had a recent echocardiogram done which was unremarkable except aortic aneurysm. Patient seen by cardiology-no further recommendation. Aortic aneurysm Patient seen by Dr. Rebolledo who recommend conservative management. Patient with advanced dementia. Continued home antihypertensives. Influenza B Supportive measures Patient treated with Tamiflu. She is discharged with Tamiflu to complete at least 5 days of treatment. Acute kidney injury Acute renal failure resolved. Oral rehydration Paroxysmal atrial fibrillation Stable Vital Signs/Physical Exam: Temp Pulse Resp BP Pulse Ox 98.2 F 75 16 158/68 H 90 L 04/23/23 08:00 04/23/23 08:30 04/23/23 08:00 04/23/23 08:30 04/23/23 08:00 General: In no apparent distress, Confused HEENT: Mucous membr. moist/pink Neck: JVD not distended Respiratory: Clear to auscultation bilaterally, Normal air movement Cardiovascular: No edema, Regular rate/rhythm, Normal S1 S2 Gastrointestinal: Normal bowel sounds, Soft and benign, Non-distended Musculoskeletal: No swelling Integumentary: No rashes, No cyanosis Neurological: Normal strength at 5/5 x4 extr, Dementia Laboratory Data at Discharge: WBC 13.90 thou/uL (4.3-10.9) H 04/23/23 05:46 Hgb 11.6 g/dL (12.0-15.0) L 04/23/23 05:46 Hct 35.0 % (36.0-45.0) L 04/23/23 05:46 Plt Count 324 thou/uL (152-406) 04/23/23 05:46 PT 11.7 SECONDS (9.5-12.5) 04/21/23 11:45 INR 1.06 04/21/23 11:45 Sodium 139 mEq/L (136-145) 04/23/23 05:46 Potassium 3.8 mEq/L (3.5-5.1) D 04/23/23 05:46 BUN 32 mg/dL (7-18) H 04/23/23 05:46 Creatinine 0.93 mg/dL (0.55-1.02) 04/23/23 05:46 Glucose 94 mg/dL (74-106) 04/23/23 05:46 Phosphorus 2.6 mg/dL (2.5-4.9) 04/22/23 02:05 Magnesium 2.4 mg/dL (1.6-2.4) 04/21/23 17:43 Total Bilirubin 0.5 mg/dL (0.2-1.0) 04/21/23 11:45 AST 23 U/L (15-37) 04/21/23 11:45 ALT 27 U/L (13-56) 04/21/23 11:45 Alkaline Phosphatase 157 U/L (45-117) H 04/21/23 11:45 Triglycerides 72 mg/dL (<150) 04/22/23 02:05 Cholesterol 98 mg/dL (<200) 04/22/23 02:05 HDL Cholesterol 33 mg/dL (40-60) L 04/22/23 02:05 Cholesterol/HDL Ratio 2.97 04/22/23 02:05 Home Medications: Amlodipine [Norvasc*] 5 mg PO BID 04/21/23 Aspirin [Aspirin EC 81 MG] 81 mg PO DAILY 04/21/23 Losartan Potassium [Cozaar*] 50 mg PO BID 04/21/23 Triamterene/Hydrochlorothiazid [Triamterene-Hctz 37.5-25 mg Tb] 37.5 mg PO DAILY 04/21/23 Acetaminophen [Tylenol*] 650 mg PO Q6H PRN #30 tab 04/23/23 Atorvastatin Calcium 20 mg PO DAILY #30 tab 04/23/23 Donepezil [Aricept*] 5 mg PO DAILY #30 tab 04/23/23 Fluoxetine HCl 10 mg PO DAILY #30 tab 04/23/23 Oseltamivir [Tamiflu*] 75 mg PO BID #8 cap 04/23/23 Quetiapine [Seroquel*] 25 mg PO BID #60 tab 04/23/23 New Medications: Donepezil [Aricept*] 5 mg PO DAILY #30 tab Atorvastatin Calcium 20 mg PO DAILY #30 tab Fluoxetine HCl 10 mg PO DAILY #30 tab Quetiapine [Seroquel*] 25 mg PO BID #60 tab Oseltamivir [Tamiflu*] 75 mg PO BID #8 cap Acetaminophen [Tylenol*] 650 mg PO Q6H PRN #30 tab PRN Reason: TEMP > 100.4' F Diet: AHA Activity: Fall precautions Followup: NONE,NONE [Primary Care Provider] - Time spent managing pt's care (in minutes): 33
[2023-04-23 15:25] VITALS: O2SAT 93
[2023-04-23 19:19] VITALS: BP 138/74; TEMP 98.5
== END 2023-04-23 13:55 | disposition home or self-care (01) | DRG 194 ==
LOC: ER 10:51 → ERHOLD 15:19 → 2ND 15:57
PROVIDERS: ADMIT Internal Medicine; ATTEND Internal Medicine
DX: J10.1 Influenza due to other identified influenza virus with other respiratory manifestations (principal); F02.83 Dementia in other diseases classified elsewhere, unspecified severity, with mood disturbance; N17.9 Acute kidney failure, unspecified; G30.9 Alzheimer's disease, unspecified; E78.5 Hyperlipidemia, unspecified; J44.9 Chronic obstructive pulmonary disease, unspecified; I11.0 Hypertensive heart disease with heart failure; I50.9 Heart failure, unspecified; I48.0 Paroxysmal atrial fibrillation; M19.90 Unspecified osteoarthritis, unspecified site; I71.21 Aneurysm of the ascending aorta, without rupture; Z95.0 Presence of cardiac pacemaker; Z79.82 Long term (current) use of aspirin; Z79.899 Other long term (current) drug therapy; Z20.822 Contact with and (suspected) exposure to COVID-19
CPT/HCPCS: 36415; 70450; 71045; 71250; 80048; 80061; 80076; 81001; 83605; 83735; 83880; 84100; 84439; 84443; 84484; 85025; 85610; 87040; 87635; 87804; 93005; 96374; 96375; 97116; 97161; 99285; J0360; J0696; J1650; J7030; J7613; J7614; J7644

== ENCOUNTER → 2023-10-28 | Emergency (ER) | payer BC, OTHER ==
[~2023-10-28] MED LIST: CEFTRIAXONE 1000 MG/VIAL ONE; NA CHLORIDE 0.9% 1,000 ML ONE; NA CHLORIDE 0.9% 500 ML ONE; levoFLOXacin 250 MG TAB ONE
[2023-10-28 13:31] LABS: Absolute Lymphocytes (CBC) 2.7 K/uL (0.7-4.9); Lymphocytes % 31.3 % (15.3-44.8); MCV 89.1 fL (80-100); MPV 6.9 fL (7.6-11.3); Platelets 325 thou/uL (152-406); RBC Red Blood Cell Count 4.05 M/uL (3.86-4.86)
[2023-10-28 13:51] LABS: ALT/SGPT 24 U/L (13-56); AST/SGOT 21 U/L (15-37); Albumin 3.1 g/dL (3.4-5.0); Alkaline Phosphatase 177 U/L (45-117); BUN Blood Urea Nitrogen 29 mg/dL (7-18); Bicarbonate 27 mEq/L (21-32); Bilirubin Total 0.3 mg/dL (0.2-1.0); Glomerular Filtration Rate 44 ml/min (=/>90); Glucose Level 102 mg/dL (74-106); Potassium 4.2 mEq/L (3.5-5.1); Protein, Total 7.1 g/dL (6.4-8.2); Sodium Level 135 mEq/L (136-145)
[2023-10-28 13:52] LABS: Lipase 45 U/L (13-75); Magnesium 2.5 mg/dL (1.6-2.4); NT PRO-BNP 190 pg/mL (<450); Troponin High Sensitivity 10.7 pg/mL (<58.9)
[2023-10-28 13:54] LABS: Bilirubin Direct < 0.1 mg/dL (0-0.2); Bilirubin Indirect, Calculated ND mg/dL (0.2-0.8)
--- NOTE | 2023-10-28 14:10 | RAD REPORT ---
EXAM DESCRIPTION: CT - Head Brain Wo Cont - 10/28/2023 1:27 pm CLINICAL HISTORY: Seizure;Trauma COMPARISON: Head Brain Wo Cont dated 04/21/2023; Head Brain Wo Cont dated 01/16/2023 TECHNIQUE: Noncontrast head CT images were obtained without IV contrast. Multiplanar reformats were generated and reviewed. All CT scans are performed using dose optimization technique as appropriate and may include automated exposure control or mA/KV adjustment according to patient size. FINDINGS: No intracranial hemorrhage, mass, or edema. Midline structures are unremarkable. Stable ventricular caliber with moderate diffuse parenchymal volume loss. Stable encephalomalacia along the parasagittal posterior parietal lobe, extending towards the ventric ular trigone. Stable pattern of confluent periventricular and deep white matter hypodensities, nonspe cific, but suggestive chronic small vessel ischemic changes. Sauer-white matter differentiation is although its preserved, without evidence of acute infarct. No ab normal extra-axial fluid collections. Mastoid air cells and visualized portions of the paranasal sinuses are clear. No acute bony findings. Asymmetric hyperostosis along the inner table more so along the left frontal convexity. This is stable in appearance. IMPRESSION: No evidence of an acute intracranial process. Stable chronic findings as above.
--- NOTE | 2023-10-28 14:26 | RAD REPORT ---
EXAM DESCRIPTION: CT - Stone Protocol - 10/28/2023 1:27 pm CLINICAL HISTORY: UTI COMPARISON: Head Brain Wo Cont dated 10/28/2023; Chest Single View dated 10/28/2023 TECHNIQUE: Thin cut axial CT imaging of the abdomen and pelvis was performed without IV contrast. Mu ltiplanar reformats were generated and reviewed. All CT scans are performed using dose optimization technique as appropriate and may include automated exposure control or mA/KV adjustment according to patient size. FINDINGS: No suspicious findings in the lung bases. The liver, spleen, and pancreas show no suspicious findings. Mild thickening along the left more than right adrenal gland without discrete nodules, nonspecific fi nding. Gallbladder shows hyperdense layering sludge without echogenic calculi. No findings on noncont rast CT to suggest intra or extrahepatic biliary ductal dilation. Symmetric renal contour, without suspicious parenchymal findings within limits of noncontrast techniq ue apart from a fluid density left mid to lower pole 3.7 cm cystic lesion, not well characterized. No evidence of radiopaque calculi or hydroureteronephrosis. No dilated bowel loops or bowel wall thickening. No free air, free fluid or inflammatory stranding. D istal colonic diverticulosis. Umbilical hernia containing fat. No mass or bulky lymphadenopathy. Sma ll calcified fibroids within the uterus. The urinary bladder is without significant finding. No suspicious bony findings. Dextroconvex mid lumbar scoliosis. IMPRESSION: No acute intra-abdominal process. No evidence of calculi or obstruction along the urinar y tracts. Incidental findings as above.
[2023-10-28 14:39] LABS: Specific Gravity 1.013 (1.005-1.030); Urine Bacteria 20-50 /HPF (<20); Urine Bilirubin NEGATIVE (Negative); Urine Blood Negative (Negative); Urine Clarity Extremely Turbid (Clear); Urine Color Yellow (Yellow); Urine Glucose NEGATIVE (Negative); Urine Protein TRACE (Negative); Urine RBC <5 /HPF (None Seen); Urine Urobilinogen Normal (Normal); Urine pH 6.5 (5.0-7.0)
--- NOTE | 2023-10-28 15:31 | RAD REPORT ---
EXAM DESCRIPTION: [facility] [place] Single View10/28/2023 1:57 pm CLINICAL HISTORY: PAIN COMPARISON: Chest Single View dated 04/21/2023; Chest Single View dated 01/16/2023 TECHNIQUE: Portable AP view of the chest. FINDINGS: The lungs are clear. No pneumothorax or effusion. The cardiomediastinal contours are unre markable. IMPRESSION: No acute cardiopulmonary process.
--- NOTE | 2023-10-28 16:19 | EDPHYS ---
Physician Documentation [facility] Name: Dennis Lovell Age: 83 yrs Sex: Female : 1940 Arrival Date: 10/28/2023 Time: 12:45 Bed 20 Private MD: LIDA Physician Fabio Momin HPI: 10/28 15:41 This 83 yrs old Female presents to ER via Wheelchair with complaints of reshma Urinary Problem, Syncope, Probable Seizure. Historical: - Allergies: 13:00 No Known Allergies; db - Home Meds: 13:00 Seroquel Oral [Active]; db - PMHx: 13:00 Alzheimer's disease; Dementia; Atrial fibrillation; Arthritis; Hyperlipidemia; db Hypertensive disorder; - PSHx: 13:00 pacemaker; db - Immunization history:: Adult Immunizations unknown. - Social history:: Smoking status: Patient denies any tobacco usage or history of. - Family history:: not pertinent. ROS: 15:41 Constitutional: Negative for fever, chills, and weight loss, Eyes: Negative for injury, reshma pain, redness, and discharge, ENT: Negative for injury, pain, and discharge, Neck: Negative for injury, pain, and swelling, Cardiovascular: Negative for chest pain, palpitations, and edema, Respiratory: Negative for shortness of breath, cough, wheezing, and pleuritic chest pain, Abdomen/GI: Negative for abdominal pain, nausea, vomiting, diarrhea, and constipation, Back: Negative for injury and pain, MS/Extremity: Negative for injury and deformity, Skin: Negative for injury, rash, and discoloration, Psych: Negative for depression, anxiety, suicide ideation, homicidal ideation, and hallucinations, Allergy/Immunology: Negative for hives, rash, and allergies, Endocrine: Negative for neck swelling, polydipsia, polyuria, polyphagia, and marked weight changes, Hematologic/Lymphatic: Negative for swollen nodes, abnormal bleeding, and unusual bruising, 15:41 : Positive for urinary frequency, 15:41 Neuro: Positive for near syncope, weakness, Exam: 15:41 Constitutional: This is a well developed, well nourished patient who is awake, alert, reshma and in no acute distress. Head/Face: Normocephalic, atraumatic. Eyes: Pupils equal round and reactive to light, extra-ocular motions intact. Lids and lashes normal. Conjunctiva and sclera are non-icteric and not injected. Cornea within normal limits. Periorbital areas with no swelling, redness, or edema. ENT: Nares patent. No nasal discharge, no septal abnormalities noted. Tympanic membranes are normal and external auditory canals are clear. Oropharynx with no redness, swelling, or masses, exudates, or evidence of obstruction, uvula midline. Mucous membranes moist. Neck: Trachea midline, no thyromegaly or masses palpated, and no cervical lymphadenopathy. Supple, full range of motion without nuchal rigidity, or vertebral point tenderness. No Meningismus. Chest/axilla: Normal chest wall appearance and motion. Nontender with no deformity. No lesions are appreciated. Cardiovascular: Regular rate and rhythm with a normal S1 and S2. No gallops, murmurs, or rubs. Normal PMI, no JVD. No pulse deficits. Respiratory: Lungs have equal breath sounds bilaterally, clear to auscultation and percussion. No rales, rhonchi or wheezes noted. No increased work of breathing, no retractions or nasal flaring. Abdomen/GI: Soft, non-tender, with normal bowel sounds. No distension or tympany. No guarding or rebound. No evidence of tenderness throughout. Back: No spinal tenderness. No costovertebral tenderness. Full range of motion. Female : Normal external genitalia. Skin: Warm, dry with normal turgor. Normal color with no rashes, no lesions, and no evidence of cellulitis. MS/ Extremity: Pulses equal, no cyanosis. Neurovascular intact. Full, normal range of motion. Neuro: Awake and alert, GCS 15, oriented to person, place, time, and situation. Cranial nerves II-XII grossly intact. Motor strength 5/5 in all extremities. Sensory grossly intact. Cerebellar exam normal. Normal gait. Psych: Awake, alert, with orientation to person, place and time. Behavior, mood, and affect are within normal limits. 15:41 ECG was reviewed by the Attending Physician. 15:49 Neuro: Orientation: is normal, appropriate for stated age, no acute changes, Mentation: reshma is normal, appropriate for stated age, no acute changes, Memory: is normal, appropriate for stated age, no acute changes, Cranial nerves: grossly normal, is grossly normal based on the patient's age, no acute changes, Motor: is normal, is grossly normal based on the patient's age, no acute changes, moves all fours, strength is normal, Gait: not applicable seizure activity, Vital Signs: 12:57 BP 159 / 45; Pulse 67; Resp 18; Temp 98.1(O); Pulse Ox 96% ; Weight 73.03 kg; Height 5 db ft. 3 in. ; 14:00 BP 158 / 49; Pulse 62; Resp 18; Pulse Ox 98% on R/A; me1 15:00 BP 161 / 42; Pulse 65; Resp 16; Pulse Ox 97% on R/A; me1 15:52 BP 170 / 44 Supine; Pulse 72; me1 15:53 BP 174 / 47 Sitting; Pulse 75; me1 15:55 BP 157 / 88 Standing; Pulse 68; Resp 16; Pulse Ox 96% on R/A; me1 16:30 BP 152 / 46; Pulse 67; Resp 18; Pulse Ox 99% on R/A; me1 12:57 Body Mass Index 28.52 (73.03 kg, 160.02 cm) db NIH Stroke Scale Scores: 15:49 NIHSS Score: 0 reshma MDM: 13:07 Patient medically screened. reshma 15:43 Differential Diagnosis: cardiac arrhythmia, cerebrovascular accident, idiopathic reshma syncope, pseudo seizure, seizure, sepsis, transient ischemic attack, vasovagal episode. Data reviewed: vital signs, nurses notes, lab test result(s), EKG, radiologic studies, CT scan, plain films. Consideration of Admission/Observation Escalation of care including admission/observation considered. I considered the following discharge prescriptions or medication management in the emergency department Medications were administered in the Emergency Department. See MAR. Independent interpretation of the following test(s) in the Emergency Department EKG: See my EKG interpretation above. Test considered but Not performed: MRI: no mri brain. Historians other than the Patient: Spouse/Significant Other: , well informed. Care significantly affected by the following chronic conditions: Hypertension, Obesity, azheimers, a fib, hyperlipid, dementia. 10/28 13:09 Order name: Basic Metabolic Panel; Complete Time: 15:27 reshma 10/28 13:09 Order name: CBC with Diff; Complete Time: 15:27 reshma 10/28 13:09 Order name: LFT's; Complete Time: 15:27 reshma 10/28 13:09 Order name: Magnesium; Complete Time: 15:27 [facility] 10/28 13:09 Order name: NT PRO-BNP; Complete Time: 15:27 [facility] 10/28 13:09 Order name: PT-INR; Complete Time: 15:27 [facility] 10/28 13:09 Order name: Troponin HS; Complete Time: 15:27 [facility] 10/28 13:09 Order name: Lipase; Complete Time: 15:27 [facility] 10/28 13:09 Order name: Urinalysis w/ reflexes; Complete Time: 15:27 [facility] 10/28 13:09 Order name: Blood Culture Adult (2) [facility] 10/28 13:09 Order name: Lactate w/ 2H reflex if indic.; Complete Time: 15:27 [facility] 10/28 14:47 Order name: Urine Culture [facility] 10/28 13:09 Order name: XRAY Chest (1 view); Complete Time: 15:53 [facility] 10/28 13:24 Order name: Head Brain Wo Cont; Complete Time: 15:27 [facility] 10/28 13:25 Order name: Stone Protocol; Complete Time: 15:27 [facility] 10/28 13:09 Order name: EKG; Complete Time: 13:09 [facility] 10/28 13:09 Order name: Cardiac monitoring; Complete Time: 13:14 [facility] 10/28 13:09 Order name: EKG - Nurse/Tech; Complete Time: 13:41 [facility] 10/28 13:09 Order name: IV Saline Lock; Complete Time: 13:23 [facility] 10/28 13:09 Order name: Labs collected and sent; Complete Time: 13:23 [facility] 10/28 13:09 Order name: O2 Per Protocol; Complete Time: 13:14 [facility] 10/28 13:09 Order name: O2 Sat Monitoring; Complete Time: 13:14 [facility] 10/28 13:09 Order name: Seizure Precautions; Complete Time: 16:07 [facility] 10/28 15:49 Order name: PO challenge; Complete Time: 16:07 [facility] 10/28 15:49 Order name: Orthostatics; Complete Time: 16:07 [facility] EC:41 Rate is 58 beats/min. Rhythm is regular. QRS [place] is Normal. [place] interval is normal. QRS reshma interval is normal. QT interval is normal. No Q waves. T waves are Normal. No ST changes noted. Clinical impression: NSR w/ Non-specific ST/T Changes and No evidence of ischemia. Interpreted by me. Reviewed by me. Administered Medications: 14:23 Drug: NS 0.9% IV 500 ml IV at bolus once Route: IV; Rate: bolus; Site: right forearm; as6 16:41 Follow up: IV Status: Completed infusion; IV Intake: 500ml me1 14:23 Drug: NS 0.9% IV 1000 ml IV at 125 ml/hr continuous Route: IV; Rate: 125 ml/hr; Site: as6 right forearm; 16:41 Follow up: IV Status: Completed infusion me1 14:23 Drug: Rocephin IV 1 grams IV at per protocol once; Given slow IV push per pharmacy as6 instructions Route: IV; Rate: per protocol; Site: right forearm; 14:25 Follow up: IV Status: Completed infusion me1 15:52 Follow up: Response: No adverse reaction me1 15:54 Drug: NS 0.9% IV 500 ml IV at bolus once Route: IV; Rate: bolus; Site: right forearm; me1 16:41 Follow up: IV Status: Completed infusion; IV Intake: 500ml me1 15:57 Drug: LevOfloxacin PO 500 mg PO once Route: PO; me1 16:41 Follow up: Response: No adverse reaction me1 Disposition Summary: 10/28/23 16:19 Discharge Ordered Notes: Location: Home reshma Problem: new reshma Symptoms: have improved reshma Condition: Stable reshma Diagnosis - Weakness reshma - UTI/ Urinary tract infection, site not specified reshma - Syncope Near reshma - Chronic kidney disease, unspecified reshma Followup: reshma - With: Private Physician - When: 2 - 3 days - Reason: Recheck today's complaints, Re-evaluation by your physician Followup: reshma - With: Zaid To MD - When: 2 - 3 days - Reason: Recheck today's complaints, Continuance of care, Re-evaluation by your physician Discharge Instructions: - Discharge Summary Sheet reshma - Dysuria reshma - Near-Syncope reshma - Urinary Tract Infection, Adult reshma - Weakness reshma - Urinary Tract Infection, Adult, Mvej-sc-Geze reshma - Near-Syncope, Jpko-md-Becm reshma - Weakness, Txam-ne-Phju reshma - Deconditioning reshma Forms: - Medication Reconciliation Form reshma - Thank You Letter reshma - Antibiotic Education reshma - Prescription Opioid Use reshma - Patient Portal Instructions reshma - Leadership Thank You Letter [facility] Prescriptions: - ondansetron 4 mg Oral Tablet,disintegrating - take 1 tablet ORAL route every 8-12 hours for 5 days as needed for nausea and reshma vomiting; 20 tablet; Refills: 0, Product Selection Permitted - levofloxacin 250 mg Oral tablet - take 1 tablet ORAL route once daily; 7 tablet; Refills: 0, Product Selection reshma Permitted NIH Stroke Scale - NIH Stroke Score Date: 10/28/2023 Time: 15:49 Total Score = 0 10. Dysarthria (speech clarity - read or repeat words) - 0(Normal) 11. Extinction and Inattention (visual/tactile/auditory/spatial/personal) - 0(No abnormality) 1a. Level of Consciousness (LOC) - 0(Alert) 1b. Level of Consciousness (LOC) (Month \T\ Age) - 0(Both) 1c. LOC Commands (Open \T\ Closes Eyes/Pole Tester) - 0(Both) 2. Best Gaze (Lateral Gaze Paresis) - 0(Normal) 3. Visual Field Loss - 0(No visual loss) 4. Facial Palsy - 0(Normal) 5a. Left Arm: Motor (10-second hold) - 0(No drift) 5b. Right Arm: Motor (10-second hold) - 0(No drift) 6a. Left Leg: Motor (5-second hold - always test supine) - 0(No drift) 6b. Right Leg: Motor (5-second hold - always test supine) - 0(No drift) 7. Limb Ataxia (finger/nose \T\ heel/miles - test with eyes open) - 0(Absent) 8. Sensory Loss (pinprick arms/legs/face) - 0(Normal) 9. Best Language: Aphasia (description/naming/reading) - 0(No aphasia) Initials: [facility] Signatures: Dispatcher [employer] EDFabio Higgins MD MD cha Slawson, Ashby RN RN as6 Asha Harkins RN RN db Shiela Bruno RN RN me1 Corrections: (The following items were deleted from the chart) 13:24 13:09 Head C Spine Cap Wo Con+CT.RAD.BRZ ordered. EDMS EDMS
--- NOTE | 2023-10-28 16:19 | ER ---
Nurse's Notes [facility] Name: Dennis Lovell Age: 83 yrs Sex: Female : 1940 Arrival Date: 10/28/2023 Time: 12:45 Bed 20 Private MD: Diagnosis: Weakness;UTI/ Urinary tract infection, site not specified;Syncope Near;Chronic kidney disease, unspecified Presentation: 10/28 12:57 Chief complaint: Parent and/or Guardian states: PATIENT WITH SYNCOPE ON WEDNESDAY TAKEN TO db DR. BRAMBILA FOR R/O SEIZURE. TOLD TO COME TO ED FOR R/O UTI AND SEIZURE. Coronavirus screen: Vaccine status: Patient reports receiving the 2nd dose of the covid vaccine. Client denies travel out of the [place] in the last 14 days. At this time, the client does not indicate any symptoms associated with coronavirus-19. Ebola Screen: Patient negative for fever greater than or equal to 101.5 degrees Fahrenheit, and additional compatible Ebola Virus Disease symptoms Patient denies exposure to infectious person. Patient denies travel to an Ebola-affected area in the 21 days before illness onset. No symptoms or risks identified at this time. Initial Sepsis Screen: Does the patient meet any 2 criteria? No. Patient's initial sepsis screen is negative. Does the patient have a suspected source of infection? No. Patient's initial sepsis screen is negative. Risk Assessment: Do you want to hurt yourself or someone else? Patient reports no desire to harm self or others. Onset of symptoms was October 25, 2023. 12:57 Method Of Arrival: Wheelchair db 12:57 Acuity: SHAYNA 2 db Triage Assessment: 13:00 General: Appears in no apparent distress. comfortable, Behavior is calm, cooperative. db Pain: Denies pain. Neuro: Level of Consciousness is awake, alert, obeys commands, Oriented to person, Reports. Historical: - Allergies: 13:00 No Known Allergies; db - Home Meds: 13:00 Seroquel Oral [Active]; db - PMHx: 13:00 Alzheimer's disease; Dementia; Atrial fibrillation; Arthritis; Hyperlipidemia; db Hypertensive disorder; - PSHx: 13:00 pacemaker; db - Immunization history:: Adult Immunizations unknown. - Social history:: Smoking status: Patient denies any tobacco usage or history of. - Family history:: not pertinent. Screenin:00 [facility] ED Fall Risk Assessment (Adult) History of falling in the last 3 months, me1 including since admission No falls in past 3 months (0 pts) Confusion or Disorientation Yes (5 pts) Intoxicated or Sedated No (0 pts) Impaired Gait Yes (1 pt) Mobility Assist Device Used Yes (1 pt) Altered Elimination Yes (1 pt) Score/Fall Risk Level 0 - 2 = Low Risk Maintained a safe environment, Provided non-skid footwear, Hourly rounding (assess needs \T\ fall precautionary measures) done. Abuse screen: Denies threats or abuse. Nutritional screening: No deficits noted. Tuberculosis screening: No symptoms or risk factors identified. Assessment: 13:00 General: Appears comfortable, well groomed, well developed, well nourished, Behavior is me1 calm, cooperative, appropriate for age, Reports PATIENT WITH SYNCOPE ON WEDNESDAY TAKEN TO DR. BRAMBILA FOR R/O SEIZURE. TOLD TO COME TO ED FOR R/O UTI AND SEIZURE. Pain: Denies pain. Neuro: Level of Consciousness is awake, alert, obeys commands, Oriented to person, situation. Neuro: Reports a syncopal episode on Wednesday.. Cardiovascular: Capillary refill < 3 seconds Patient's skin is warm and dry. Respiratory: Airway is patent Trachea midline Respiratory effort is even, unlabored, Respiratory pattern is regular, symmetrical. GI:. 16:51 Cardiovascular: Rhythm is sinus bradycardia. me1 Vital Signs: 12:57 BP 159 / 45; Pulse 67; Resp 18; Temp 98.1(O); Pulse Ox 96% ; Weight 73.03 kg; Height 5 db ft. 3 in. ; 14:00 BP 158 / 49; Pulse 62; Resp 18; Pulse Ox 98% on R/A; me1 15:00 BP 161 / 42; Pulse 65; Resp 16; Pulse Ox 97% on R/A; me1 15:52 BP 170 / 44 Supine; Pulse 72; me1 15:53 BP 174 / 47 Sitting; Pulse 75; me1 15:55 BP 157 / 88 Standing; Pulse 68; Resp 16; Pulse Ox 96% on R/A; me1 16:30 BP 152 / 46; Pulse 67; Resp 18; Pulse Ox 99% on R/A; me1 12:57 Body Mass Index 28.52 (73.03 kg, 160.02 cm) db NIH Stroke Scale Scores: 15:49 NIHSS Score: 0 reshma ED Course: 12:47 Patient arrived in ED. rg4 13:00 Triage completed. db 13:00 Arm band placed on Patient placed in an exam room. db 13:00 Patient has correct armband on for positive identification. Bed in low position. Call me1 light in reach. Side rails up X2. Provided Education on: POC. Verbalized understanding. . 13:00 No provider procedures requiring assistance completed. me1 13:05 Shiela Bruno, BEAR is Primary Nurse. me1 13:07 Fabio Momin MD is Attending Physician. reshma 13:20 First set of blood cultures drawn by ut. mb9 13:23 Inserted saline lock: 20 gauge in right forearm, using aseptic technique. Blood mb9 collected. 13:23 Lipase Sent. mb9 13:23 Basic Metabolic Panel Sent. mb9 13:23 CBC with Diff Sent. mb9 13:23 LFT's Sent. mb9 13:23 Magnesium Sent. mb9 13:23 NT PRO-BNP Sent. mb9 13:23 PT-INR Sent. mb9 13:23 Troponin HS Sent. mb9 13:28 Head Brain Wo Cont In Process Unspecified. EDMS 13:29 Stone Protocol In Process Unspecified. EDMS 13:59 XRAY Chest (1 view) In Process Unspecified. EDMS 16:19 Zaid To MD is Referral Physician. reshma 16:50 IV discontinued, intact, bleeding controlled, No redness/swelling at site. Pressure me1 dressing applied. Administered Medications: 14:23 Drug: NS 0.9% IV 500 ml IV at bolus once Route: IV; Rate: bolus; Site: right forearm; as6 16:41 Follow up: IV Status: Completed infusion; IV Intake: 500ml me1 14:23 Drug: NS 0.9% IV 1000 ml IV at 125 ml/hr continuous Route: IV; Rate: 125 ml/hr; Site: as6 right forearm; 16:41 Follow up: IV Status: Completed infusion me1 14:23 Drug: Rocephin IV 1 grams IV at per protocol once; Given slow IV push per pharmacy as6 instructions Route: IV; Rate: per protocol; Site: right forearm; 14:25 Follow up: IV Status: Completed infusion me1 15:52 Follow up: Response: No adverse reaction me1 15:54 Drug: NS 0.9% IV 500 ml IV at bolus once Route: IV; Rate: bolus; Site: right forearm; me1 16:41 Follow up: IV Status: Completed infusion; IV Intake: 500ml me1 15:57 Drug: LevOfloxacin PO 500 mg PO once Route: PO; me1 16:41 Follow up: Response: No adverse reaction me1 Medication: 13:00 VIS not applicable for this client. me1 Intake: 16:41 IV: 500ml; Total: 500ml. me1 16:41 IV: 500ml; Total: 1000ml. me1 Outcome: 16:19 Discharge ordered by . reshma 16:49 Discharged to home via wheelchair, with family, me1 16:49 Condition: stable 16:49 Discharge instructions given to patient, family, Instructed on discharge instructions, follow up and referral plans. medication usage, Demonstrated understanding of instructions, follow-up care, medications, Prescriptions given X 2, 16:57 Patient left the ED. me1 NIH Stroke Scale - NIH Stroke Score Date: 10/28/2023 Time: 15:49 Total Score = 0 10. Dysarthria (speech clarity - read or repeat words) - 0(Normal) 11. Extinction and Inattention (visual/tactile/auditory/spatial/personal) - 0(No abnormality) 1a. Level of Consciousness (LOC) - 0(Alert) 1b. Level of Consciousness (LOC) (Month \T\ Age) - 0(Both) 1c. LOC Commands (Open \T\ Closes Eyes/Food Service Clerk) - 0(Both) 2. Best Gaze (Lateral Gaze Paresis) - 0(Normal) 3. Visual Field Loss - 0(No visual loss) 4. Facial Palsy - 0(Normal) 5a. Left Arm: Motor (10-second hold) - 0(No drift) 5b. Right Arm: Motor (10-second hold) - 0(No drift) 6a. Left Leg: Motor (5-second hold - always test supine) - 0(No drift) 6b. Right Leg: Motor (5-second hold - always test supine) - 0(No drift) 7. Limb Ataxia (finger/nose \T\ heel/miles - test with eyes open) - 0(Absent) 8. Sensory Loss (pinprick arms/legs/face) - 0(Normal) 9. Best Language: Aphasia (description/naming/reading) - 0(No aphasia) Initials: reshma Signatures: Dispatcher [employer] EDFabio Higgins MD MD cha Garcia, Rubi rg4 Abdiel Guajardo RN RN as6 Asha Harkins RN RN db Randi Burger RN RN mb9 Shiela Bruno RN RN me1 Corrections: (The following items were deleted from the chart) 14:52 12:57 Chief complaint: Parent and/or Guardian states: PATIENT WITH SYNCOPE ON me1 WEDNESDAY TAKEN TO DR. BRAMBILA FOR R/O SEIZURE. TOLD TO COME TO ED FOR R/O UTI AND SEIZURE db 16:11 15:00 BP 170 / 44 Supine; Pulse 72bpm; ut1 me1 16:11 15:00 BP 174 / 47 Sitting; Pulse 75bpm; ut1 ut1 16:11 15:00 BP 157 / 88 Standing; Pulse 68bpm; ut1 ut1
[2023-10-28 17:48] VITALS: TEMP 98.1
[2023-10-28 18:05] VITALS: BP 152/46; O2SAT 99
--- NOTE | 2023-11-01 15:13 | EKG ---
Test Date: 2023-10-28 Test Time: 13:38:10 [employer]ing Machine [employer]: CARTER MEASUREMENT RESULTS: Intervals: Rate: 58 DE: 198 QRSD: 112 QT: 476 QTc: 467 [place]: P: 92 DE: 198 QRS: 27 T: 83 INTERPRETIVE STATEMENTS: Sinus bradycardia Otherwise normal ECG Compared to ECG 04/21/2023 12:12:18 Sinus rhythm no longer present First degree AV block no longer present Left bundle-branch block no longer present ST (T wave) deviation no longer present Electronically Signed On 11-01-23 15:03:28 [employer] by John Rebolledo
== END ==
LOC: ER 12:45
DX: N39.0 Urinary tract infection, site not specified (principal); R55 Syncope and collapse; I12.9 Hypertensive chronic kidney disease with stage 1 through stage 4 chronic kidney disease, or unspecified chronic kidney disease; N18.9 Chronic kidney disease, unspecified; G30.9 Alzheimer's disease, unspecified; F02.80 Dementia in other diseases classified elsewhere, unspecified severity, without behavioral disturbance, psychotic disturbance, mood disturbance, and anxiety; Z95.0 Presence of cardiac pacemaker
CPT/HCPCS: 93005; 87040 ×2; 87088; 85025; 81001; 87086; 80048; 36415; 83735; 85610; 80076; 83605; 87077; 87186; 84484; 83690; 83880; 70450; 76377; 74176; 71045; J7040; J7030; J0696